=== PATIENT | female | born 1980 | race Asian ===

== ENCOUNTER 2017-05-06 14:47 | Emergency (ER) | payer MEDICAID ==
[~2017-05-06] VITALS: Ht 157.5 cm; Wt 72.6 kg
[2017-05-06 14:57] VITALS: BP 150/98
== END 2017-05-06 16:34 | disposition home or self-care (01) ==
LOC: ER 14:47
DX: J02.9 Acute pharyngitis, unspecified (principal); F41.9 Anxiety disorder, unspecified